=== PATIENT | male | born 1970 | race Caucasian/White ===

== ENCOUNTER → 2021-08-21 | Outpatient (CLI) | payer BC ==
[~2021-08-21] MED LIST: DAYPRO600 M1 PO
== END | disposition home or self-care (01) ==
LOC: RAD 10:59
PROVIDERS: ATTEND Chiropractor
DX: M47.812 Spondylosis without myelopathy or radiculopathy, cervical region (principal); M48.02 Spinal stenosis, cervical region

== ENCOUNTER 2023-04-13 19:24 | Emergency (ER) | payer OTHER ==
[~2023-04-13] VITALS: Ht 182.8 cm; Wt 81.6 kg
[2023-04-13] MEDS ORDERED: Ketorolac Tromethamine 60 MG/2 ML VIAL IM ONE (21:15)
[2023-04-13] MEDS ORDERED: PREDNISONE20 M1 PO (21:17)
[2023-04-13] MEDS ORDERED: ZITHROMAX250 MG PO (21:17)
== END 2023-04-13 21:32 | disposition home or self-care (01) ==
LOC: ED 19:24
DX: B34.9 Viral infection, unspecified (principal); Z20.822 Contact with and (suspected) exposure to COVID-19; F17.200 Nicotine dependence, unspecified, uncomplicated